=== PATIENT | male | born 1955 | race Caucasian/White ===

== ENCOUNTER 2018-12-10 12:45 | Observation (INO) ==
[2018-12-10] MEDS ORDERED: Ipratropium/Albuterol Neb 3 ML IH ONE (13:26)
[2018-12-10] MEDS ORDERED: methylPREDNISolone 125 MG/2 ML VIAL IVP ONE (13:26)
[2018-12-10] MEDS ORDERED: Aspirin 325 MG TABLET PO ONE (13:26)
[2018-12-10] MEDS ORDERED: *HR* FentaNYL (PF) 100 MCG/2 ML VIAL IVP ONE (13:27)
[2018-12-10] MEDS ORDERED: Albuterol 2.5 MG/3 ML NEBULIZER IH ONE (14:35)
[2018-12-10 15:09] LABS: Basophils % 0.2 %; Hematocrit 38.5 % (37.5-50.1); Hemoglobin 12.9 g/dL (12.9-16.9); Lymphocytes % 8.2 %; Mean Corpuscular HGB Conc 33.5 g/dL (31.6-35.5); Mean Corpuscular Hemoglobin 36.9 pg (28.0-33.3); Mean Platelet Volume 10.3 fL (9.4-12.4); Monocytes # 0.4 K/mcL (0.0-1.3); Monocytes % 3.2 %; Neutrophils # 10.9 K/mcL (1.6-8.9); Platelet Count 269 K/mcL (140-400); Red Cell Distribution Width 14.6 % (11.5-14.5); Segmented Neutrophils % 87.4 %; White Blood Count 12.5 K/mcL (4.3-11.1)
[2018-12-10 15:43] LABS: BUN/Creatinine Ratio 23 (6-26); Blood Urea Nitrogen 19 mg/dL (8-23); Calcium 8.9 mg/dL (8.6-10.3); Carbon Dioxide 22 mEq/L (23-29); Chloride 106 mEq/L (98-107); Glucose 123 mg/dL (70-105); Osmolality,Calculated 292 (280-300); Potassium 4.6 mEq/L (3.5-5.1); Sodium 139 mEq/L (136-145); Troponin I < 0.03 ng/mL (< 0.04); eGFR For African Americans > 60 (> 60); eGFR For Non-African Americans > 60 (> 60)
[2018-12-10] MEDS ORDERED: Ondansetron 4 MG/2 ML VIAL IVP PRN (17:30)
[2018-12-10] MEDS ORDERED: *HR* Promethazine 25 MG/ML VIAL IVP PRN (17:30)
[2018-12-10] MEDS ORDERED: MOM Conc 10 ML UD.LIQ PO PRN (17:30)
[2018-12-10] MEDS ORDERED: Mag Hydrox/Al Hydrox/Simeth 30 ML UDC PO PRN (17:30)
[2018-12-10] MEDS ORDERED: Naloxone 0.4 MG/ML INJ IVP PRN (17:30)
[2018-12-10] MEDS ORDERED: traMADol 50 MG TABLET PO PRN (17:30)
[2018-12-10] MEDS ORDERED: Ipratropium/Albuterol Neb 3 ML IH PRN (17:34)
[2018-12-10] MEDS ORDERED: Azithromycin 500 MG in 0.9 % Sodium Chloride 250 ML IVPB SCH (18:00)
[2018-12-10] MEDS: *HR* Heparin 5,000 UNIT/ML VIAL SQ SCH (20:06)
[2018-12-10] MEDS ORDERED: clonazePAM 0.5 MG TABLET PO ONE (20:10)
[2018-12-10] MEDS: Ipratropium/Albuterol Neb 3 ML IH SCH (21:00)
[2018-12-10] MEDS ORDERED: Acetaminophen IV 500 MG/50 ML INFUS..BTL IVPB ONE (22:05)
[2018-12-11] MEDS: methylPREDNISolone 125 MG/2 ML VIAL IVP SCH ×2 (00:16→07:46)
[2018-12-11] MEDS: Ipratropium/Albuterol Neb 3 ML IH SCH ×3 (00:37→07:41)
[2018-12-11] MEDS ORDERED: Ketorolac 15 MG/ML VIAL IVP ONE (02:01)
[2018-12-11 02:27] LABS: Basophils % 0.1 %; Hematocrit 36.2 % (37.5-50.1); Hemoglobin 12.2 g/dL (12.9-16.9); Immature Granulocytes % 0.9 % (0-4); Lymphocytes # 0.9 K/mcL (0.6-4.6); Lymphocytes % 10.1 %; Mean Corpuscular HGB Conc 33.7 g/dL (31.6-35.5); Mean Corpuscular Volume 109.7 fL (83.0-100.0); Mean Platelet Volume 10.2 fL (9.4-12.4); Monocytes # 0.3 K/mcL (0.0-1.3); Monocytes % 3.3 %; Platelet Count 217 K/mcL (140-400); Red Cell Distribution Width 14.6 % (11.5-14.5); Segmented Neutrophils % 85.6 %; White Blood Count 9.3 K/mcL (4.3-11.1)
[2018-12-11 03:08] LABS: BUN/Creatinine Ratio 19 (6-26); Blood Urea Nitrogen 17 mg/dL (8-23); Calcium 8.6 mg/dL (8.6-10.3); Carbon Dioxide 23 mEq/L (23-29); Chloride 107 mEq/L (98-107); Glucose 133 mg/dL (70-105); Osmolality,Calculated 287 (280-300); Potassium 4.2 mEq/L (3.5-5.1); Sodium 137 mEq/L (136-145); eGFR For African Americans > 60 (> 60); eGFR For Non-African Americans > 60 (> 60)
[2018-12-11] MEDS: *HR* Heparin 5,000 UNIT/ML VIAL SQ SCH (06:13)
[2018-12-11 06:54] VITALS: BP 145/82
[2018-12-11] MEDS ORDERED: Tiotropium 18 MCG inhalation IH SCH (07:00)
[2018-12-11] MEDS ORDERED: Aspirin Enteric Coated 81 MG Tablet PO SCH (09:00)
[2018-12-11] MEDS ORDERED: clonazePAM 1 MG TABLET PO SCH (09:30)
[2018-12-11] MEDS ORDERED: Pregabalin 50 MG CAPSULE PO SCH (09:30)
== END 2018-12-11 11:01 | disposition left against medical advice (07) ==
LOC: EMEROOARM 12:45 → 3BNU 12:45
PROVIDERS: ADMIT Internal Medicine; ATTEND Internal Medicine